=== PATIENT | female | born 1955 | race Caucasian/White ===

== ENCOUNTER 2018-08-31 14:37 | Emergency (ER) | payer OTHER ==
[2018-08-31] MEDS ORDERED: Aspirin 81 MG Tab.Chew PO ONE (14:58)
[2018-08-31] MEDS ORDERED: Ondansetron 4 MG/2 ML SDV IV ONE (14:58)
[2018-08-31] MEDS ORDERED: Nitroglycerin 0.4 MG Tab.SL SL PRN (14:58)
[2018-08-31] MEDS ORDERED: Sodium Chloride 0.9% 10 ML Syringe FLUSH PRN (14:59)
[2018-08-31 15:15] VITALS: BP 138/82
[2018-08-31 15:21] LABS: ANION GAP 15.8; CHLORIDE,CL 101 mmol/L (101-111); SODIUM,NA 135 mmol/L (135-145)
--- NOTE | 2018-08-31 15:54 | EDM.PDOC ---
Scribed by Stephanie Guo 08/31/18 [id number] for Jas Fajardo MD ED HPI GENERAL MEDICAL PROBLEM - General Chief Complaint: Chest Pain Stated Complaint: HAVING A HARD TIME BREATING, PAIN IN CHEST Time Seen by Provider: 08/31/18 14:45 Source of Information: Reports: Patient, RN, RN Notes Reviewed History Limitations: Reports: No Limitations - History of Present Illness INITIAL COMMENTS - FREE TEXT/NARRATIVE: Patient presents to the ER with chest and upper epigastric pain for a couple of hours. It is associated with shortness of breath and nausea. Pain began while she was working in the yard. She has had a similar pain that has come and gone several times with exertion over the past couple of weeks but has never been this severe. History of coronary artery disease, status post right RCA stent approximately 3 years ago. Also a history of acid reflux/GERD. Denies cough, radiating pain, leg pain ro calf pain or edema. She rates the pain 9/10. Onset: Today Duration: Getting Worse Location: Reports: Chest (lower and upper epigastrium) Quality: Reports: Ache Severity: Severe Improves with: Reports: None Worsens with: Reports: None Associated Symptoms: Reports: No Other Symptoms Middle Chest Pain Score (Numeric/FACES): 3 - Related Data Allergies Allergy/AdvReac Type Severity Reaction Status Date / Time No Known Allergies Allergy Verified 08/31/18 14:57 Home Meds: Home Meds Aspirin [Children's Aspirin] 81 mg PO DAILY 04/26/16 [History] Lisinopril/Hydrochlorothiazide [Lisinopril-Hctz 10-12.5 mg Tab] 1 tab PO DAILY 04/26/16 [History] Omeprazole 20 mg PO DAILY 04/26/16 [History] Simvastatin [Zocor] 20 mg PO BEDTIME 04/26/16 [History] Past Medical History HEENT History: Reports: Impaired Vision Cardiovascular History: Reports: Angina, CAD, High Cholesterol, Hypertension, PTCA, Stents Respiratory History: Reports: None Gastrointestinal History: Reports: Cholelithiasis, Fecal Incontinence, GERD, Other (See Below) Other Gastrointestinal History: going to [place] for acid reflux. Laryngopharyngeal reflux. Schatzki's ring. 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 ankle. plate and 7 screws. DJD. Neurological History: Reports: None, Other (See Below) (insomnia) Psychiatric History: Reports: Depression, Other (See Below) (mood disorder) Endocrine/Metabolic History: Reports: None Hematologic History: Reports: None Immunologic History: Reports: None, Other (See Below) (recent cold sores) Oncologic (Cancer) History: Reports: None Dermatologic History: Reports: None - Infectious Disease History Infectious Disease History: Reports: None - Past Surgical History Head Surgeries/Procedures: Reports: None HEENT Surgical History: Reports: Adenoidectomy, Tonsillectomy Cardiovascular Surgical History: Reports: Other (See Below) (left heart cath) GI Surgical History: Reports: Colonoscopy, EGD, Esophageal Dilatation Female Surgical History: Reports: Section (x2.) Musculoskeletal Surgical History: Reports: Arthroscopic Knee, Carpal Tunnel ( left wrist), Other (See Below) (ankle surgery ORIF.) Social & Family History - Family History Family Medical History: Noncontributory Cardiac: Reports: High Cholesterol, Hypertension, DC, Stent Other Cardiac Family History: 2 brothers of DC, Dad had 2 open heart surg. , 1 brother with 4 stents. Mother had 4 DC's and of a stroke. - Tobacco Use Smoking Status *Q: Never Smoker - Caffeine Use Caffeine Use: Reports: Coffee Other Caffeine Use: coffee 2 cup/day - Living Situation & Occupation Living situation: Reports: , with Spouse Occupation: Employed ED ROS GENERAL - Review of Systems Review Of Systems: ROS reveals no pertinent complaints other than HPI. ED EXAM, GENERAL - Physical Exam Exam: See Below Exam Limited By: No Limitations General Appearance: Alert, WD/WN, No Apparent Distress, Anxious Eye Exam: Bilateral Eye: Normal Inspection Nose: Normal Inspection Throat/Mouth: Normal Inspection, Normal Lips, Normal Voice, No Airway Compromise Head: Atraumatic, Normocephalic Neck: Normal Inspection, Supple, Non-Tender, Full Range of Motion Respiratory/Chest: No Respiratory Distress, Lungs Clear, Normal Breath Sounds, No Accessory Muscle Use, Chest Non-Tender Cardiovascular: Normal Peripheral Pulses, Regular Rate, Rhythm, No Edema, No Gallop, No JVD, No Murmur, No Rub GI/Abdominal: Normal Bowel Sounds, Soft, Non-Tender, No Organomegaly, No Distention, No Abnormal Bruit, No Mass Back Exam: Normal Inspection Extremities: Normal Inspection, Normal Range of Motion, Non-Tender, Normal Capillary Refill, No Pedal Edema Neurological: Alert, Oriented, CN II-XII Intact, Normal Cognition, Normal Gait, No Motor/Sensory Deficits Psychiatric: Normal Affect, Anxious Skin Exam: Warm, Dry, Intact, Normal Color, No Rash EKG INTERPRETATION EKG Date: 08/31/18 Time: 14:51 Rhythm: Other (sinus rhythm) Rate (Beats/Min): 86 [place]: Normal P-Wave: Present QRS: Normal ST-T: Normal QT: Normal Comparison: No Change Course - Vital Signs Last Recorded V/S: Last Vital Signs Temp 36.3 C 08/31/18 14:58 Pulse 96 08/31/18 14:58 Resp 24 H 08/31/18 14:58 BP 138/82 08/31/18 15:13 Pulse Ox 100 08/31/18 14:58 - Orders/Labs/Meds Orders: Active Orders 24 hr Category Date Time Status EKG 12 Lead [EKG Documentation Completion] [RC] STAT Care 08/31/18 14:44 Active Peripheral IV Care [RC] . DIRECTED Care 08/31/18 15:00 Active Nitroglycerin [Nitrostat] Med 08/31/18 14:58 Active 0.4 mg SL Q5M PRN Sodium Chloride 0.9% [Saline Flush] Med 08/31/18 14:59 Active 10 ml FLUSH ASDIRECTED PRN Peripheral IV Insertion Adult [OM.PC] Stat Oth 08/31/18 14:59 Ordered Medication Orders Nitroglycerin (Nitrostat) 0.4 mg SL Q5M PRN PRN Reason: Chest Pain Last Admin: 08/31/18 15:13 Dose: 0.4 mg Sodium Chloride (Saline Flush) 10 ml FLUSH ASDIRECTED PRN PRN Reason: Keep Vein Open Last Admin: 08/31/18 15:13 Dose: 10 ml Labs: Laboratory Tests 08/31/18 08/31/18 08/31/18 Range/Units 14:51 14:51 14:51 WBC 8.5 (5.0-10.0) 10^3/uL RBC 4.97 (4.2-5.4) 10^6/uL Hgb 15.3 D (12.0-16.0) g/dL Hct 44.1 (37.0-47.0) % MCV 88.7 (80-100) fL MCH 30.8 (27.0-34.0) pg MCHC 34.7 (33.0-35.0) g/dL Plt Count 359 (150-450) 10^3/uL Neut % (Auto) 59.8 (42.2-75.2) % Lymph % (Auto) 26.0 (20.5-50.1) % [place] % (Auto) 11.6 H (2-8) % Eos % (Auto) 2.5 (1.0-3.0) % Baso % (Auto) 0.1 (0.0-1.0) % PT 9.4 (9.0-12.0) SEC INR 0.9 (0.9-1.2) APTT 23.2 (22.0-34.0) SEC D-Dimer, Quantitative 226 (0-400) ng/mL Sodium 135 (135-145) mmol/L Potassium 3.8 (3.6-5.0) mmol/L Chloride 101 (101-111) mmol/L Carbon Dioxide 22.0 (21.0-31.0) mmol/L Anion Gap 15.8 BUN 24 H (7-18) mg/dL Creatinine 0.8 (0.6-1.3) mg/dL Est Cr Clr Drug Dosing 61.09 mL/min Estimated GFR (MDRD) > 60 BUN/Creatinine Ratio 30.00 Glucose 101 (74-105) mg/dL Calcium 9.7 (8.4-10.2) mg/dl Total Bilirubin 1.0 (0.2-1.0) mg/dL AST 24 (10-42) IU/L ALT 26 (10-60) IU/L Alkaline Phosphatase 84 (42-121) IU/L Troponin I < 0.02 (0.00-0.02) ng/ml B-Natriuretic Peptide 21 (0-100) pg/ml Total Protein 7.8 (6.7-8.2) g/dl Albumin 4.8 (3.2-5.5) g/dl Globulin 3.0 Albumin/Globulin Ratio 1.60 Amylase 88 (28-100) U/L Lipase 39 (22-51) U/L Meds: Medications Generic Name Dose Route Start Last Admin Trade Name Freq PRN Reason Stop Dose Admin Nitroglycerin 0.4 mg 08/31/18 14:58 08/31/18 15:13 Nitrostat SL 0.4 mg Q5M PRN Administration Chest Pain Sodium Chloride 10 ml 08/31/18 14:59 08/31/18 15:13 Saline Flush FLUSH 10 ml ASDIRECTED PRN Administration Keep Vein Open Discontinued Medications Generic Name Dose Route Start Last Admin Trade Name Freq PRN Reason Stop Dose Admin Aspirin 324 mg 08/31/18 14:58 08/31/18 15:13 Aspirin PO 08/31/18 14:59 324 mg ONETIME ONE Administration Ondansetron HCl 4 mg 08/31/18 14:58 08/31/18 15:08 Zofran IV 08/31/18 14:59 4 mg ONETIME ONE Administration - Radiology Interpretation Free Text/Narrative:: [facility] Final Radiology Report Call: [phone] assistance Online chat: [email or web address] Name: GAEL HENDERSON Age: 62Years F Date: 08/31/2018 SSN: -- : 1955 Study: XR CHEST 1 VIEW FRONTAL Requesting Physician: JAS FAJARDO Images: 1 Addl Studies: Provided Clinical History: Contrast: Contrast Medium: Contrast Amount: Contrast Method: CONFIDENTIALITY STATEMENT This report is intended only for use by the referring physician, and only in accordance with law. If you received this in error, call [phone]. Page 1 of 1 EXAM: XR Chest, 1 View EXAM DATE/TIME: 08/31/2018 3:10 PM CLINICAL HISTORY: 62 years old, female; Chest pain; Type not specified TECHNIQUE: Imaging protocol: XR of the chest, 1 view. COMPARISON: CR CHEST PA/LAT 05/24/2008 3:33 PM FINDINGS: Lungs: The lungs are hyperinflated, consistent with underlying small airways disease. Atelectatic changes noted within both lung bases without focal pneumonia. Pleural space: No pleural effusions or pneumothorax. Heart/Mediastinum: Unremarkable. No cardiomegaly. Bones/joints: Unremarkable. IMPRESSION: 1. The lungs are hyperinflated, consistent with underlying small airways disease. 2. Atelectatic changes noted within both lung bases without focal pneumonia. Thank you for allowing us to participate in the care of your patient. Dictated and Authenticated by: Ceasar Mobley DO 08/31/2018 3:20 PM Central Time ([place] & [place]) - Re-Assessments/Exams Free Text/Narrative Re-Assessment/Exam: 08/31/18 15:51 Pt with known CAD s/p RCA stent x1 who presented with exertional chest pain associated with lightheadedness, shortness of breath, and nausea which was relieved with nitroglycerin. Give the pt's history and current symptoms I think the pt is likely having exertional angina which is increasing in frequency and intensity of pain. Pt will be transferred to [facility] in for further evaluation. Dr. Guadarrama accepts the pt as a direct admit. Departure - Departure Time of Disposition: 15:47 Disposition: DC/Tfer to Acute Hospital 02 Reason for Transfer *Q: Primary PCI Indicated Condition: Undetermined Clinical Impression: Angina pectoris, History of coronary artery disease Chest pain Qualifiers: Chest pain type: chest pain due to myocardial ischemia Ischemic chest pain type : other angina pectoris type Qualified Code(s): I20.8 - Other forms of angina pectoris Forms: ED Department Discharge, Interfacility Transfer EMTALA - My Orders Last 24 Hours: My Active Orders 08/31/18 14:44 EKG 12 Lead [EKG Documentation Completion] [RC] STAT 08/31/18 14:58 Nitroglycerin [Nitrostat] 0.4 mg SL Q5M PRN 08/31/18 14:59 Sodium Chloride 0.9% [Saline Flush] 10 ml FLUSH ASDIRECTED PRN Peripheral IV Insertion Adult [OM.PC] Stat 08/31/18 15:00 Peripheral IV Care [RC] . DIRECTED - Assessment/Plan Last 24 Hours: My Active Orders 08/31/18 14:44 EKG 12 Lead [EKG Documentation Completion] [RC] STAT 08/31/18 14:58 Nitroglycerin [Nitrostat] 0.4 mg SL Q5M PRN 08/31/18 14:59 Sodium Chloride 0.9% [Saline Flush] 10 ml FLUSH ASDIRECTED PRN Peripheral IV Insertion Adult [OM.PC] Stat 08/31/18 15:00 Peripheral IV Care [RC] . DIRECTED I have read and agree with the documentation that has been completed regarding this visit. By signing this record, I attest that the documentation was completed in my physical presence and is an accurate record of the encounter.
== END 2018-08-31 16:14 ==
LOC: DL.ED 14:37
DX: I20.8 Other forms of angina pectoris (principal); E78.00 Pure hypercholesterolemia, unspecified; I10 Essential (primary) hypertension; F32.9 Major depressive disorder, single episode, unspecified; Z95.5 Presence of coronary angioplasty implant and graft; Z79.82 Long term (current) use of aspirin; Z79.899 Other long term (current) drug therapy
CPT/HCPCS: 36415; 71045; 80053; 82150; 83690; 83880; 84484; 85025; 85379; 85610; 85730; 93005; 96374; 99285; A9270; J2405

== ENCOUNTER 2018-11-13 06:21 | Day surgery (SDC) | payer OTHER ==
[2018-11-13] MEDS ORDERED: Midazolam 1 MG/ML 2 ML SDV IV ONE ×8 (06:22→07:37)
[2018-11-13] MEDS ORDERED: fentaNYL 100 MCG/2 ML SDV IV ONE ×3 (06:22→07:29)
[2018-11-13] MEDS ORDERED: Midazolam 1 MG/ML 2 ML SDV ONE (06:31)
[2018-11-13] MEDS ORDERED: fentaNYL 100 MCG/2 ML SDV ONE (06:31)
[2018-11-13] MEDS ORDERED: Dextrose 5%-0.45% NaCl 1,000 ML IV SCH (07:00)
[2018-11-13 10:09] VITALS: BP 121/73
--- NOTE | 2018-11-13 13:26 | OR ---
DATE: 11/13/2018 PREOPERATIVE DIAGNOSIS: Rectal bleeding. POSTOPERATIVE DIAGNOSIS: Rectal bleeding. PROCEDURE: Total colonoscopy. ANESTHESIA: Conscious sedation with IV Versed and fentanyl. SPECIMEN: None. OPERATIVE FINDINGS: Normal colonoscopy, but she does have a few internal and some external hemorrhoids, most likely is the cause of any bleeding. PROCEDURE IN DETAIL: After adequate preparation, a colonoscope was inserted into the rectum. This was easily passed all the way to the cecum. The bowel prep was excellent. On withdrawal of the scope, a good examination of the colon was accomplished. She has no masses, polyps, bleeding sites, evidence of colitis, or other abnormalities. In the rectum, she does have some internal hemorrhoids and by physical exam external on the outside. No other abnormalities were noted. Air was suctioned from the colon, and the scope removed. [facility] /[id number]
== END 2018-11-13 09:47 | disposition home or self-care (01) ==
LOC: DL.ENDO 06:21
PROVIDERS: ATTEND Surgery
DX: K62.5 Hemorrhage of anus and rectum (principal); K64.8 Other hemorrhoids; K64.4 Residual hemorrhoidal skin tags
CPT/HCPCS: 45378; J2250; J3010; J7042; G0121

== ENCOUNTER 2023-05-21 05:57 | Day surgery (SDC) | payer MEDICARE, BC ==
[2023-05-21] MEDS ORDERED: Midazolam 1 MG/ML 2 ML SDV IV ONE (05:58)
[2023-05-21] MEDS ORDERED: fentaNYL 100 MCG/2 ML SDV IV ONE (05:58)
[2023-05-21] MEDS ORDERED: Midazolam 1 MG/ML 2 ML SDV ONE (06:08)
[2023-05-21] MEDS ORDERED: fentaNYL 100 MCG/2 ML SDV ONE (06:09)
[2023-05-21] MEDS: Dextrose 5%-0.45% NaCl 1,000 ML IV SCH (06:25)
[2023-05-21] MEDS: fentaNYL 100 MCG/2 ML SDV IV ONE ×2 (06:55→06:57)
[2023-05-21] MEDS: Midazolam 1 MG/ML 2 ML SDV IV ONE ×2 (06:57→06:58)
[2023-05-21 07:36] VITALS: PULSE 57
[2023-05-21 08:09] VITALS: BP 93/58
== END 2023-05-21 08:41 | disposition home or self-care (01) ==
LOC: DL.ENDO 05:57
PROVIDERS: ATTEND Internal Medicine Gastroenterology
DX: K22.2 Esophageal obstruction (principal); K21.9 Gastro-esophageal reflux disease without esophagitis; E78.5 Hyperlipidemia, unspecified; I25.10 Atherosclerotic heart disease of native coronary artery without angina pectoris
CPT/HCPCS: 43239; 87077; J2250; J3010; J7042

== ENCOUNTER 2023-08-16 00:12 | Emergency (ER) | payer MEDICARE, BC ==
[2023-08-16 00:36] LABS: BASOPHILS PERCENT AUTO 0.2 % (0.0-1.0); EOSINOPHILS PERCENT AUTO 3.4 % (1.0-3.0); HEMATOCRIT 37.3 % (37.0-47.0); HEMOGLOBIN 12.5 g/dL (12.0-16.0); LYMPHOCYTES PERCENT AUTO 33.3 % (20.5-50.1); MEAN CORPUSCULAR HEMOGLOBIN 30.2 pg (27.0-34.0); MEAN CORPUSCULAR HGB CONC 33.5 g/dL (33.0-35.0); MEAN CORPUSCULAR VOLUME 90.1 fL (80-100); MONOCYTES PERCENT AUTO 9.7 % (2-8); NEUTROPHILS PERCENT AUTO 53.4 % (42.2-75.2); PLATELET COUNT,PLT 253 10^3/uL (150-450); RED BLOOD CELL COUNT 4.14 10^6/uL (4.2-5.4); WHITE BLOOD CELL COUNT,WBC 5.6 10^3/uL (5.0-10.0)
[2023-08-16 00:44] VITALS: BP 129/71; PULSE 67
[2023-08-16 00:50] LABS: INR 0.9 (0.9-1.2); PROTHROMBIN TIME 9.8 SEC (9.0-12.0)
[2023-08-16 00:58] LABS: A/G RATIO 1.2; ALBUMIN 3.6 g/dL (3.4-5.0); ANION GAP 13.4 mEq/L (7-13); BILIRUBIN TOTAL 0.4 mg/dL (0.2-1.0); BUN/CREATININE RATIO 22.9 (No establ ref range); CALCIUM 8.9 mg/dL (8.5-10.1); CREATININE 1.09 mg/dL (0.55-1.02); MAGNESIUM 1.7 mg/dL (1.8-2.4); POTASSIUM,K 3.4 mmol/L (3.5-5.1); PROTEIN TOTAL,TP 6.6 g/dL (6.4-8.2)
[2023-08-16] MEDS: Sodium Chloride 0.9% 1,000 ML IV ONE (01:17)
[2023-08-16] MEDS: Magnesium Oxide 400 MG Tab PO ONE (01:18)
[2023-08-16] MEDS: Potassium Chloride 10 MEQ Tab.ER PO ONE (01:18)
== END 2023-08-16 02:53 | disposition home or self-care (01) ==
LOC: DL.ED 00:12
DX: I20.89 Other forms of angina pectoris (principal); N17.9 Acute kidney failure, unspecified; E87.6 Hypokalemia; E83.42 Hypomagnesemia; K52.9 Noninfective gastroenteritis and colitis, unspecified; I10 Essential (primary) hypertension; E78.00 Pure hypercholesterolemia, unspecified; E66.9 Obesity, unspecified; Z68.29 Body mass index [BMI] 29.0-29.9, adult; Z79.82 Long term (current) use of aspirin; Z79.899 Other long term (current) drug therapy
CPT/HCPCS: 36415; 71045; 80053; 83690; 83735; 84484; 85025; 85610; 93005; 96360; 99285; A9270; J7030; 93010; 99284